=== PATIENT | female | born 1980 | race Two or more races ===

== ENCOUNTER 2018-01-07 16:51 | Emergency (ER) | payer OTHER ==
[~2018-01-07] VITALS: Ht 165.1 cm; Wt 77.0 kg
[2018-01-07 17:43] LABS: BASOPHILS # (AUTO) 0.02 x10^3/uL (0-0.1); BASOPHILS % (AUTO) 0 % (0-1); EOSINOPHILS # (AUTO) 0.34 x10^3/uL (0-0.4); EOSINOPHILS % (AUTO) 3 % (1-7); LYMPHOCYTES # (AUTO) 2.55 x10^3/uL (1-3.4); LYMPHOCYTES % (AUTO) 25 % (22-44); MD NO; MEAN CORPUSCULAR HEMOGLOBIN 29.8 pg (27.0-34.8); MEAN CORPUSCULAR HGB CONC 33.7 g/dL (32.4-35.8); MEAN CORPUSCULAR VOLUME 88.2 fL (80-100); MEAN PLATELET VOLUME 8.6 fL (7.4-10.4); MONOCYTES # (AUTO) 0.74 x10^3/uL (0.2-0.8); MONOCYTES % (AUTO) 7 % (2-9); NEUTROPHILS # (AUTO) 6.38 x10^3/uL (1.8-6.8); NEUTROPHILS % (AUTO) 64 % (42-75); PLATELET COUNT 311 x10^3/uL (130-400); RED BLOOD COUNT 4.64 x10^6/uL (3.82-5.3); RED CELL DISTRIBUTION WIDTH 14.1 % (9.6-15.2)
[2018-01-07 17:56] LABS: ALBUMIN 3.7 g/dL (3.4-5.0); ANION GAP 7 mmol/L (5-15); CALCIUM 8.2 mg/dL (8.5-10.1); CHLORIDE 106 mmol/L (98-107); CREATININE 0.61 mg/dL (0.55-1.02)
[2018-01-07 18:01] LABS: TROPONIN I < 0.015 ng/mL (0.000-0.045)
[2018-01-07 19:37] VITALS: BP 128/67
== END 2018-01-07 19:49 | disposition home or self-care (01) ==
LOC: ED 19:35
DX: R07.9 Chest pain, unspecified (principal); K21.9 Gastro-esophageal reflux disease without esophagitis
CPT/HCPCS: 36415; 71046; 80048; 82040; 84484; 85025; 85379; 93005; 99285

== ENCOUNTER 2021-07-27 21:22 | Emergency (ER) | payer MEDICAID, OTHER ==
[~2021-07-27] VITALS: Ht 165.1 cm; Wt 81.8 kg
[2021-07-27] MEDS ORDERED: SODIUM CHLORIDE 0.9% 1,000ML IVBOLUS ONE (22:00)
[2021-07-27] MEDS ORDERED: PROCHLORPERAZINE 5 MG/ML, 2ML IVPush ONE (22:00)
[2021-07-27] MEDS ORDERED: SODIUM CHLORIDE FLUSH 10ML SYR IVF ONE (22:00)
[2021-07-27] MEDS ORDERED: DIPHENHYDRAMINE 50 MG/ML, 1ML IVPush ONE (22:00)
[2021-07-27] MEDS ORDERED: DIPHENHYDRAMINE 50 MG/ML, 1ML ONE (23:36)
[2021-07-27] MEDS ORDERED: PROCHLORPERAZINE 5 MG/ML, 2ML ONE (23:36)
--- NOTE | 2021-07-27 23:45 | NUR ---
DR MCCLURE AT BEDSIDE, VERBAL ORDER TO HOLD BENADRYL AND GIVE 30 MG TORADOL INSTEAD. VERBAL ORDER REPEATED
[2021-07-27] MEDS ORDERED: KETOROLAC 30 MG/1 ML ONE (23:48)
[2021-07-28] MEDS ORDERED: KETOROLAC 15 MG/1ML IVPush ONE
[2021-07-28 00:30] VITALS: BP 125/71
--- NOTE | 2021-07-28 00:40 | NUR ---
PT REPORTS FEELING BETTER AND STATES "MY HEADACHE IS GONE".
--- NOTE | 2021-07-28 00:55 | NUR ---
Patient and spouse given discharge instructions and they have confirmed that they understand the instructions. Patient ambulatory with steady gait. NAD, all questions answered appropriately, denies additional needs at this time. No personal belongings left in room after discharge.
== END 2021-07-28 00:56 | disposition home or self-care (01) ==
LOC: ED 23:12
DX: R51.9 Headache, unspecified (principal)
CPT/HCPCS: 70450; 96361; 96374; 96375; 99284; J0780; J1885; J7030